=== PATIENT | male | born 1940 | race African-American/Black ===

== ENCOUNTER 2017-01-27 17:15 | Inpatient (IN) | payer MEDICARE ==
[~2017-01-27] VITALS: Ht 167.6 cm; Wt 81.6 kg
[~2017-01-27 17:15] MED LIST: AMLO10TA80 PO; DIPH25CA83 PO; LOSA1TAB33 PO; RISP4 PO
[2017-01-27] MEDS ORDERED: ACETAMINOPHEN 650MG/20.3ML UDC PO PRN (18:45)
[2017-01-27] MEDS ORDERED: ACETAMINOPHEN WITH CODEINE 300/30MG TABLET PO PRN (18:45)
[2017-01-27] MEDS ORDERED: CLONIDINE 0.1MG TABLET PO PRN (18:45)
[2017-01-27 20:00] VITALS: BP 142/81
[2017-01-27] MEDS ORDERED: ZOLPIDEM TARTRATE 5MG TABLET PO PRN (21:00)
[2017-01-27] MEDS: RISPERIDONE 1MG TABLET PO SCH (21:40)
[2017-01-27] MEDS: DIPHENHYDRAMINE 50MG CAPSULE PO SCH (21:40)
[2017-01-27] MEDS: FAMOTIDINE 20MG TABLET PO SCH (21:40)
[2017-01-27] MEDS: ENOXAPARIN 40MG/0.4ML SYR SUBCUT SCH (21:41)
[2017-01-28 07:07] LABS: CARBON DIOXIDE 26 mEq/L (21-32); CHLORIDE 105 mEq/L (98-107)
[2017-01-28 07:13] LABS: CREATINE KINASE 1065 IU/L (39-308)
[2017-01-28 08:00] VITALS: BP 95/75
[2017-01-28] MEDS: CELECOXIB 200MG CAPSULE PO SCH (08:44)
[2017-01-28] MEDS: FAMOTIDINE 20MG TABLET PO SCH ×2 (08:45→22:03)
[2017-01-28] MEDS: LOSARTAN POTASSIUM 100 MG TABLET PO SCH (08:47)
[2017-01-28] MEDS: AMLODIPINE 10MG TABLET PO SCH (08:48)
[2017-01-28] MEDS: HYDROCHLOROTHIAZIDE 12.5MG CAPSULE PO SCH (08:48)
[2017-01-28] MEDS: ACETAMINOPHEN 325MG TABLET PO PRN (08:57)
[2017-01-28 20:00] VITALS: BP 122/72
[2017-01-28] MEDS: RISPERIDONE 1MG TABLET PO SCH (22:03)
[2017-01-28] MEDS: DIPHENHYDRAMINE 50MG CAPSULE PO SCH (22:03)
[2017-01-28] MEDS: ENOXAPARIN 40MG/0.4ML SYR SUBCUT SCH (22:04)
[2017-01-29 06:44] LABS: PROTHROMBIN TIME 10.4 sec
[2017-01-29 06:48] LABS: BASOPHILS % 0.7 % (0.0-2.0); EOSINOPHILS % 1.9 % (0.0-5.0); HEMATOCRIT. 36.1 % (42.0-52.0); HEMOGLOBIN. 12.1 g/dL (14.0-18.0); LYMPHOCYTES % 43.1 % (20.0-50.0); MEAN CORPUSCULAR HEMOGLOBIN 27.5 pg (28.0-32.0); MEAN CORPUSCULAR VOLUME 82.3 fL (80.0-94.0); MEAN PLATELET VOLUME 8.6 fl (7.4-10.4); MONOCYTES % 7.2 % (2.0-8.0); NEUTROPHILS % 47.1 % (40.0-76.0); PLATELET 233 x1000/uL (130-400); RED BLOOD CELL COUNT 4.39 mill/uL (4.7-6.1); RED CELL DISTRIBUTION WIDTH 15.4 % (11.6-14.6)
[2017-01-29 06:53] LABS: CARBON DIOXIDE 27 mEq/L (21-32); CHLORIDE 106 mEq/L (98-107)
[2017-01-29 08:00] VITALS: BP 150/85
[2017-01-29] MEDS: CELECOXIB 200MG CAPSULE PO SCH (08:11)
[2017-01-29] MEDS: AMLODIPINE 10MG TABLET PO SCH (08:12)
[2017-01-29] MEDS: FAMOTIDINE 20MG TABLET PO SCH ×2 (08:12→20:40)
[2017-01-29] MEDS: HYDROCHLOROTHIAZIDE 12.5MG CAPSULE PO SCH (08:12)
[2017-01-29] MEDS: LOSARTAN POTASSIUM 100 MG TABLET PO SCH (08:12)
[2017-01-29] MEDS: ACETAMINOPHEN 325MG TABLET PO PRN (11:20)
[2017-01-29 20:00] VITALS: BP 107/68
[2017-01-29] MEDS: DIPHENHYDRAMINE 50MG CAPSULE PO SCH (20:39)
[2017-01-29] MEDS: ENOXAPARIN 40MG/0.4ML SYR SUBCUT SCH (20:39)
[2017-01-29] MEDS: RISPERIDONE 1MG TABLET PO SCH (20:40)
[2017-01-30 08:00] VITALS: BP 120/74
[2017-01-30] MEDS: FAMOTIDINE 20MG TABLET PO SCH ×2 (08:03→21:29)
[2017-01-30] MEDS: AMLODIPINE 10MG TABLET PO SCH (08:03)
[2017-01-30] MEDS: HYDROCHLOROTHIAZIDE 12.5MG CAPSULE PO SCH (08:03)
[2017-01-30] MEDS: CELECOXIB 200MG CAPSULE PO SCH (08:03)
[2017-01-30] MEDS: LOSARTAN POTASSIUM 100 MG TABLET PO SCH (08:06)
[2017-01-30 20:00] VITALS: BP 132/78
[2017-01-30] MEDS: RISPERIDONE 1MG TABLET PO SCH (21:29)
[2017-01-30] MEDS: DIPHENHYDRAMINE 50MG CAPSULE PO SCH (21:30)
[2017-01-30] MEDS: ENOXAPARIN 40MG/0.4ML SYR SUBCUT SCH (21:30)
[2017-01-31 08:00] VITALS: BP 109/73
[2017-01-31] MEDS: CELECOXIB 200MG CAPSULE PO SCH (08:15)
[2017-01-31] MEDS: FAMOTIDINE 20MG TABLET PO SCH ×2 (08:15→22:39)
[2017-01-31] MEDS: HYDROCHLOROTHIAZIDE 12.5MG CAPSULE PO SCH (08:17)
[2017-01-31] MEDS: AMLODIPINE 10MG TABLET PO SCH (08:17)
[2017-01-31] MEDS: LOSARTAN POTASSIUM 100 MG TABLET PO SCH (08:17)
[2017-01-31 20:00] VITALS: BP 116/83
[2017-01-31] MEDS: RISPERIDONE 1MG TABLET PO SCH (22:38)
[2017-01-31] MEDS: DIPHENHYDRAMINE 50MG CAPSULE PO SCH (22:38)
[2017-01-31] MEDS: ENOXAPARIN 40MG/0.4ML SYR SUBCUT SCH (22:38)
[2017-02-01 08:00] VITALS: BP 127/76
[2017-02-01] MEDS: AMLODIPINE 10MG TABLET PO SCH (08:19)
[2017-02-01] MEDS: CELECOXIB 200MG CAPSULE PO SCH (08:20)
[2017-02-01] MEDS: FAMOTIDINE 20MG TABLET PO SCH ×2 (08:20→21:16)
[2017-02-01] MEDS: LOSARTAN POTASSIUM 100 MG TABLET PO SCH (08:20)
[2017-02-01] MEDS: HYDROCHLOROTHIAZIDE 12.5MG CAPSULE PO SCH (08:20)
[2017-02-01 20:00] VITALS: BP 106/76
[2017-02-01] MEDS: DIPHENHYDRAMINE 50MG CAPSULE PO SCH (21:16)
[2017-02-01] MEDS: ENOXAPARIN 40MG/0.4ML SYR SUBCUT SCH (21:16)
[2017-02-01] MEDS: RISPERIDONE 1MG TABLET PO SCH (21:17)
[2017-02-02 08:00] VITALS: BP 110/72
[2017-02-02] MEDS: CELECOXIB 200MG CAPSULE PO SCH (08:30)
[2017-02-02] MEDS: FAMOTIDINE 20MG TABLET PO SCH ×2 (08:30→21:20)
[2017-02-02] MEDS: HYDROCHLOROTHIAZIDE 12.5MG CAPSULE PO SCH (08:30)
[2017-02-02] MEDS: AMLODIPINE 10MG TABLET PO SCH (08:31)
[2017-02-02] MEDS: LOSARTAN POTASSIUM 100 MG TABLET PO SCH (08:32)
[2017-02-02 20:00] VITALS: BP 132/80
[2017-02-02] MEDS: RISPERIDONE 1MG TABLET PO SCH (21:16)
[2017-02-02] MEDS: DIPHENHYDRAMINE 50MG CAPSULE PO SCH (21:16)
[2017-02-02] MEDS: ENOXAPARIN 40MG/0.4ML SYR SUBCUT SCH (21:17)
[2017-02-03 08:00] VITALS: BP 107/68
[2017-02-03] MEDS: AMLODIPINE 10MG TABLET PO SCH (08:58)
[2017-02-03] MEDS: HYDROCHLOROTHIAZIDE 12.5MG CAPSULE PO SCH (08:58)
[2017-02-03] MEDS: LOSARTAN POTASSIUM 100 MG TABLET PO SCH (08:58)
[2017-02-03] MEDS: FAMOTIDINE 20MG TABLET PO SCH ×2 (08:58→21:24)
[2017-02-03] MEDS: CELECOXIB 200MG CAPSULE PO SCH (08:58)
[2017-02-03 20:00] VITALS: BP 135/84
[2017-02-03] MEDS: DIPHENHYDRAMINE 50MG CAPSULE PO SCH (21:24)
[2017-02-03] MEDS: RISPERIDONE 1MG TABLET PO SCH (21:24)
[2017-02-03] MEDS: ENOXAPARIN 40MG/0.4ML SYR SUBCUT SCH (21:25)
[2017-02-04] MEDS: LOSARTAN POTASSIUM 100 MG TABLET PO SCH (08:06)
[2017-02-04] MEDS: FAMOTIDINE 20MG TABLET PO SCH ×2 (08:06→22:58)
[2017-02-04] MEDS: HYDROCHLOROTHIAZIDE 12.5MG CAPSULE PO SCH (08:06)
[2017-02-04] MEDS: AMLODIPINE 10MG TABLET PO SCH (08:06)
[2017-02-04] MEDS: CELECOXIB 200MG CAPSULE PO SCH (08:06)
[2017-02-04 08:08] VITALS: BP 130/74
[2017-02-04 20:00] VITALS: BP 123/82
[2017-02-04] MEDS: ENOXAPARIN 40MG/0.4ML SYR SUBCUT SCH (22:58)
[2017-02-04] MEDS: RISPERIDONE 1MG TABLET PO SCH (22:58)
[2017-02-04] MEDS: DIPHENHYDRAMINE 50MG CAPSULE PO SCH (22:58)
[2017-02-05 08:00] VITALS: BP 117/73
[2017-02-05] MEDS: FAMOTIDINE 20MG TABLET PO SCH ×2 (09:23→21:23)
[2017-02-05] MEDS: CELECOXIB 200MG CAPSULE PO SCH (09:23)
[2017-02-05] MEDS: LOSARTAN POTASSIUM 100 MG TABLET PO SCH (09:24)
[2017-02-05] MEDS: AMLODIPINE 10MG TABLET PO SCH (09:24)
[2017-02-05] MEDS: HYDROCHLOROTHIAZIDE 12.5MG CAPSULE PO SCH (09:26)
[2017-02-05 20:00] VITALS: BP 105/71
[2017-02-05] MEDS: RISPERIDONE 1MG TABLET PO SCH (21:23)
[2017-02-05] MEDS: DIPHENHYDRAMINE 50MG CAPSULE PO SCH (21:23)
[2017-02-05] MEDS: ENOXAPARIN 40MG/0.4ML SYR SUBCUT SCH (21:24)
[2017-02-06 08:00] VITALS: BP 102/66
[2017-02-06] MEDS: FAMOTIDINE 20MG TABLET PO SCH (08:32)
[2017-02-06] MEDS: LOSARTAN POTASSIUM 100 MG TABLET PO SCH (08:32)
[2017-02-06] MEDS: CELECOXIB 200MG CAPSULE PO SCH (08:32)
[2017-02-06] MEDS: HYDROCHLOROTHIAZIDE 12.5MG CAPSULE PO SCH (08:32)
[2017-02-06] MEDS: AMLODIPINE 10MG TABLET PO SCH (08:33)
[2017-02-06 14:17] VITALS: BP 104/65
== END 2017-02-06 14:45 | disposition home health service (06) | DRG 543 ==
PROVIDERS: ADMIT Psychiatry & Neurology Neurology; ATTEND Internal Medicine
PROC: 0HBRXZZ Excision of Toe Nail, External Approach (ICD-10-PCS; principal; 2017-01-29)
PROC: 0HBRXZZ Excision of Toe Nail, External Approach (ICD-10-PCS; 2017-01-29)
PROC: 0HBRXZZ Excision of Toe Nail, External Approach (ICD-10-PCS; 2017-01-29)
PROC: 0HBRXZZ Excision of Toe Nail, External Approach (ICD-10-PCS; 2017-01-29)
PROC: 0HBRXZZ Excision of Toe Nail, External Approach (ICD-10-PCS; 2017-01-29)
PROC: 0HBRXZZ Excision of Toe Nail, External Approach (ICD-10-PCS; 2017-01-29)
PROC: 0HBRXZZ Excision of Toe Nail, External Approach (ICD-10-PCS; 2017-01-29)
PROC: 0HBRXZZ Excision of Toe Nail, External Approach (ICD-10-PCS; 2017-01-29)
PROC: 0HBRXZZ Excision of Toe Nail, External Approach (ICD-10-PCS; 2017-01-29)
PROC: 0HBRXZZ Excision of Toe Nail, External Approach (ICD-10-PCS; 2017-01-29)
DX: M48.56XA Collapsed vertebra, not elsewhere classified, lumbar region, initial encounter for fracture (principal); M62.82 Rhabdomyolysis; F20.9 Schizophrenia, unspecified; I10 Essential (primary) hypertension; M19.90 Unspecified osteoarthritis, unspecified site; W19.XXXA Unspecified fall, initial encounter; M85.80 Other specified disorders of bone density and structure, unspecified site; G70.9 Myoneural disorder, unspecified; D64.9 Anemia, unspecified; R62.7 Adult failure to thrive; B35.1 Tinea unguium; L60.0 Ingrowing nail; L60.3 Nail dystrophy; M20.11 Hallux valgus (acquired), right foot; M20.41 Other hammer toe(s) (acquired), right foot; R26.2 Difficulty in walking, not elsewhere classified; Y93.89 Activity, other specified; Y92.098 Other place in other non-institutional residence as the place of occurrence of the external cause; Y99.8 Other external cause status
CPT/HCPCS: 36415; 72146; 72148; 80048; 82550; 85025; 85610; 92523; 93970; 97110; 97116; 97162; 97166; 97530; 97532; 97535; J1650; Q0163